=== PATIENT | female | born 1995 | race African-American/Black ===

== ENCOUNTER 2022-05-07 00:50 | Inpatient (IN) | payer BC ==
[2022-05-07] MEDS ORDERED: ELECTROLYTE-148 SOLN 500 ML IV ONE ×2 (01:30→02:30)
[2022-05-07 01:35] VITALS: BMI 25.8
[2022-05-07 01:49] LABS: BASO % 0.5 % (0-2.0); EOS % 0.5 % (0-4.5); HEMATOCRIT 37.1 % (32.4-45.2); HEMOGLOBIN 12.5 GM/dL (10.7-15.3); LYMPH % 14.6 % (8-40); MCHC 33.7 g/dl (32.0-36.0); MEAN PLT VOLUME 10.4 fl (7.5-11.1); MONO % 4.9 % (3.8-10.2); NEUT % 79.5 % (42.8-82.8); PLATELET COUNT 193 10^3/uL (134-434); RBC 4.16 M/mm3 (3.60-5.2); RDW 13.4 % (11.6-15.6); WHITE BLOOD COUNT 14.2 K/mm3 (4.0-10.0)
[2022-05-07 01:57] LABS: INR 0.92 (0.83-1.09); PROTHROMBIN TIME (PATIENT) 10.6 SEC (9.7-13.0)
[2022-05-07 02:00] LABS: ACTIVATED PTT 29.5 SECONDS (25.2-36.5)
[2022-05-07 02:08] LABS: CALCIUM 9.2 mg/dL (8.5-10.1)
[2022-05-07 02:12] LABS: CREATININE 0.8 mg/dL (0.55-1.3)
[2022-05-07 02:14] LABS: BLOOD UREA NITROGEN 8.4 mg/dL (7-18)
[2022-05-07] MEDS ORDERED: BUTORPHANOL TARTRATE 1 MG/ML VIAL IVPB ONE (02:15)
[2022-05-07] MEDS ORDERED: PROMETHAZINE HCL 25 MG/1 ML VIAL IVPB ONE (02:15)
[2022-05-07] MEDS ORDERED: BUTORPHANOL TARTRATE 2 MG/ML VIAL ONE (02:23)
[2022-05-07] MEDS ORDERED: PROMETHAZINE HCL 25 MG/1 ML VIAL ONE (02:23)
[2022-05-07] MEDS ORDERED: AMPICILLIN SODIUM 2 GM VIAL ONE (02:58)
[2022-05-07] MEDS ORDERED: AMPICILLIN - 2 GM in SODIUM CHLORIDE 100 ML IVPB ONE (03:00)
[2022-05-07] MEDS ORDERED: FENTANYL/BUPIVACAINE/NS/PF - PCEA - 50 ML DISP.SYRIN EP ONE (03:42)
[2022-05-07] MEDS ORDERED: NALOXONE HCL 0.4 MG/ML VIAL IVPUSH PRN (04:41)
[2022-05-07] MEDS ORDERED: FENTANYL/BUPIVACAINE/NS/PF - PCEA - 50 ML DISP.SYRIN EP SCH (04:45)
[2022-05-07] MEDS ORDERED: OXYTOCIN 30 UNITS in 0.9% NS 30 UNIT/500 ML INFUS.BAG IVPB SCH (05:00)
[2022-05-07] MEDS ORDERED: ELECTROLYTE-148 SOLN 1,000 ML IV SCH (05:00)
[2022-05-07] MEDS ORDERED: OXYTOCIN 30 UNITS in 0.9% NS 30 UNIT/500 ML INFUS.BAG IVPB ONE (06:00)
[2022-05-07] MEDS ORDERED: AMPICILLIN SODIUM 1 GM VIAL ONE (06:33)
[2022-05-07] MEDS ORDERED: AMPICILLIN - 1 GM in SODIUM CHLORIDE 100 ML IVPB SCH (07:00)
[2022-05-07] MEDS ORDERED: OXYTOCIN 20 UNITS in 0.9% NS 20 UNIT/1,000 ML INFUS.BAG IV ONE (07:06)
[2022-05-07] MEDS ORDERED: BENZOCAINE 20% 57 GM BOTTLE TP PRN (07:42)
[2022-05-07] MEDS ORDERED: ACETAMINOPHEN 325 MG TABLET (FP) PO PRN (07:42)
[2022-05-07] MEDS ORDERED: BENZOCAINE 28 GM HEMORRHOIDAL OINTMENT TP PRN (07:42)
[2022-05-07] MEDS ORDERED: WITCH HAZEL 50% (TUCKS) 40 PAD/JAR PAD TP PRN (07:42)
[2022-05-07] MEDS ORDERED: BISACODYL 10 MG SUPP.RECT RC PRN (07:42)
[2022-05-07] MEDS ORDERED: oxyCODONE HCL 5 MG TABLET PO PRN (07:42)
[2022-05-07] MEDS ORDERED: METHYLERGONOVINE MALEATE 0.2 MG/1 ML AMP IM PRN (07:42)
[2022-05-07] MEDS ORDERED: OXYTOCIN 20 UNITS in 0.9% NS 20 UNIT/1,000 ML INFUS.BAG IV SCH (07:45)
[2022-05-07] MEDS: IBUPROFEN 600 MG TABLET (FP) PO PRN ×2 (07:50→17:18)
[2022-05-08] MEDS: IBUPROFEN 600 MG TABLET (FP) PO PRN ×2 (00:29→22:46)
[2022-05-08 08:16] LABS: BASO % 0.6 % (0-2.0); EOS % 2.1 % (0-4.5); HEMATOCRIT 32.3 % (32.4-45.2); HEMOGLOBIN 11.1 GM/dL (10.7-15.3); LYMPH % 21.7 % (8-40); MCH 30.6 pg (25.7-33.7); MCHC 34.2 g/dl (32.0-36.0); MEAN CELL VOLUME 89.5 fl (80-96); MEAN PLT VOLUME 10.4 fl (7.5-11.1); MONO % 5.1 % (3.8-10.2); NEUT % 70.5 % (42.8-82.8); PLATELET COUNT 161 10^3/uL (134-434); RBC 3.61 M/mm3 (3.60-5.2); RDW 13.6 % (11.6-15.6); WHITE BLOOD COUNT 12.2 K/mm3 (4.0-10.0)
[2022-05-08] MEDS ORDERED: SENNOSIDES/DOCUSATE COMBO (SENNA PLUS) TABLET (UD) PO PRN (22:00)
[2022-05-09 08:57] VITALS: BP 106/67; PULSE 60; TEMP 97.8
== END 2022-05-09 13:36 | disposition home or self-care (01) | DRG 807 ==
LOC: JLDR 00:50 → J3W 08:45
PROVIDERS: ADMIT Specialist; ATTEND Specialist
PROC: 10E0XZZ Delivery of Products of Conception, External Approach (ICD-10-PCS; principal; 2022-05-07)
PROC: 0W8NXZZ Division of Female Perineum, External Approach (ICD-10-PCS; 2022-05-07)
DX: O69.1XX0 Labor and delivery complicated by cord around neck, with compression, not applicable or unspecified (principal); Z37.0 Single live birth; Z3A.39 39 weeks gestation of pregnancy
CPT/HCPCS: 36415; 59409; 80048; 85025; 85610; 85730; 86780; 86850; 86900; 86901; C9803-CS; U0003; U0005